=== PATIENT | female | born 1995 | race Caucasian/White ===

== ENCOUNTER 2022-02-10 10:33 | Day surgery (SDC) | payer BC ==
[2022-02-06 12:32] VITALS: BMI 24.3
[2022-02-10] MEDS ORDERED: Bupivacaine PF 0.5% 30 ML VIAL ONE (12:27)
[2022-02-10] MEDS ORDERED: EPINEPHrine 1 MG/ML AMP ONE ×2 (12:27→12:28)
[2022-02-10] MEDS ORDERED: CEFAZOLIN 2 GM VIAL ONE (14:33)
[2022-02-10] MEDS ORDERED: Fentanyl 100 MCG/2 ML VIAL ONE (14:37)
[2022-02-10] MEDS ORDERED: PROPOFOL 20 ML ONE (14:37)
[2022-02-10] MEDS ORDERED: Midazolam HCl 2 mg/2 ml Vial ONE (14:42)
[2022-02-10] MEDS ORDERED: Dexamethasone 4 mg/ml Vial ONE (14:50)
[2022-02-10] MEDS ORDERED: Ondansetron PF 4 MG/2 ML Vial ONE (14:50)
[2022-02-10] MEDS ORDERED: Ketorolac Tromethamine 30 MG/ML VIAL ONE (15:12)
[2022-02-10] MEDS ORDERED: HYDROmorphone 0.5 MG/0.5 ML SYRINGE ONE ×2 (15:45→15:54)
== END 2022-02-10 17:15 | disposition home or self-care (01) ==
LOC: CSHSDC 10:33
PROVIDERS: ATTEND Orthopaedic Surgery Sports Medicine
PROC: 0RQJ4ZZ Repair Right Shoulder Joint, Percutaneous Endoscopic Approach (ICD-10-PCS; principal; 2022-02-10)
DX: S43.431A Superior glenoid labrum lesion of right shoulder, initial encounter (principal); F32.A Depression, unspecified; F41.9 Anxiety disorder, unspecified; Z79.899 Other long term (current) drug therapy; X58.XXXA Exposure to other specified factors, initial encounter
CPT/HCPCS: C1713; J0171; J1100; J1170; J1885; J2250; J2405; J2704; J3010; S0020